=== PATIENT | female | born 1965 ===

== ENCOUNTER 2023-12-24 10:59 | Emergency (ER) | payer OTHER, SELFPAY ==
[2023-12-24 11:06] VITALS: BP 106/68
[2023-12-24 11:34] VITALS: BMI 20.6
--- NOTE | 2023-12-24 11:50 | ED.GENMED ---
History of Present Illness
General
Chief Complaint: Musculo-Skeletal Complaint
Time Seen by Provider: 12/24/23 11:37
History of Present Illness
History of Present Illness:
58-year-old female presents the emergency department for ration of right third toe injury, states that she stubbed her toe on her crutches when attempting to ambulate last night. Obvious bruising deformity noted
Review of Systems
Review of Systems
Allergies reviewed?: Yes
All Other Systems: ROS reviewed and negative except as documented in HPI and ROS
Phy Exam
Physical Exam
Physical Exam:
GEN: Well appearing, NAD, WDWN
HEENT: Oral mucosa moist, no scleral icterus
Cardiac: Regular rate
Lung: No respiratory distress, no tachypnea
MSK: Ecchymosis with deformity right third toe moderate swelling noted
Skin: Good color, no pallor or jaundice, no rashes
Neuro: AO x3, moves all extremities freely
Psych: Calm, cooperative
Course
Orders/Labs/Results
Orders:
Orders
12/24/23 11:10
Toes 2 Views, Right [CR Toe(s) Min 2 Vw Right] Urgent
Comment:
Reason For Exam: pain and swelling
Indicate Which Toe:: Third
Vital Signs
Initial and Last Documented VS:
Initial Vital Signs
Temp Pulse Resp BP Pulse Ox
98.2 F 82 18 106/68 99
12/24/23 11:06 12/24/23 11:06 12/24/23 11:06 12/24/23 11:06 12/24/23 11:06
Last Documented Vital Signs
Temp Pulse Resp BP Pulse Ox
98.2 F 82 18 106/68 99
12/24/23 11:06 12/24/23 11:06 12/24/23 11:06 12/24/23 11:06 12/24/23 11:06
MDM/Problems Addressed
MDM/Problems Addressed:
X-rays independently interpreted by me show a oblique fracture of the proximal phalanx of the right third toe, guillermo taping and supportive care discussed, outpatient podiatry follow-up recommended. [place] of time, plans to f/u with ict security specialist [place]
*Critical Care Note
Total Time (30-74mins, 75-104mins- exclusive of procedures): Not Applicable
ED Attending Note
-
Portions of this chart may have been created with voice recognition software.� Occasional wrong word or��sound alike� substitutions may have occurred due to the inherent limitations of voice recognition software.
Discharge Plan
Departure
Patient Disposition: Home (Routine Discharge)
Date of Disposition: 12/24/23
Time of Disposition: 11:51
Patient with high blood pressure during this ER visit?: No
Discharge Problem:
Closed fracture of phalanx of right third toe
Instructions: Toe Fracture ED
Referrals:
Nitish Moreno DPM [Specified Professional Personl] -
Marlon Bravo MD [Family Provider] -
Interventions
Interventions:
*Risk Screen - Suicide Last Done: 12/24/23 11:36
*General Assessment Last Done: 12/24/23 11:36
*Neglect/Abuse Screening Last Done: 12/24/23 11:36
ED- Fall Risk Assessment Last Done: 12/24/23 11:37
*ED COVID-19 Vaccine History Last Done: 12/24/23 11:36
*Nursing Disposition Last Done: 12/24/23 12:22
ED-Musculoskeletal Assessment Last Done: 12/24/23 11:40
Discharge Date and Time
Discharge Date/Time: 12/24/23 12:23
Print Language: TURKISH
== END 2023-12-24 12:23 | disposition home or self-care (01) ==
LOC: EMR 10:59
PROVIDERS: EMERGENCY PHYSICIAN Emergency Medicine; FAMILY PHYSICIAN Family Medicine
DX: S92.501A Displaced unspecified fracture of right lesser toe(s), initial encounter for closed fracture (principal); S90.121A Contusion of right lesser toe(s) without damage to nail, initial encounter; W22.8XXA Striking against or struck by other objects, initial encounter
CPT/HCPCS: 99283; 73660

== ENCOUNTER 2023-12-25 11:16 | Outpatient (RCR) | payer OTHER, SELFPAY | END 2023-12-25 23:59 | disposition home or self-care (01) | LOC: RPT 11:16 | PROVIDERS: ATTENDING PHYSICIAN Family Medicine | DX: S82.109D Unspecified fracture of upper end of unspecified tibia, subsequent encounter for closed fracture with routine healing (principal); Z73.6 Limitation of activities due to disability | CPT/HCPCS: 97110; 97161 ==

== ENCOUNTER 2024-03-25 06:22 | Outpatient (RCR) | payer OTHER, SELFPAY | END 2024-03-25 23:59 | disposition home or self-care (01) | LOC: RPT 06:22 | PROVIDERS: ATTENDING PHYSICIAN Family Medicine | DX: S82.109D Unspecified fracture of upper end of unspecified tibia, subsequent encounter for closed fracture with routine healing (principal); S82.102D Unspecified fracture of upper end of left tibia, subsequent encounter for closed fracture with routine healing (principal); Z73.6 Limitation of activities due to disability; M62.81 Muscle weakness (generalized) | CPT/HCPCS: 97110; 97112; 97164; 97530 ==

== ENCOUNTER 2024-04-08 06:45 | Outpatient (RCR) | payer OTHER, SELFPAY | END 2024-04-08 09:00 | disposition home or self-care (01) | LOC: RPT 06:45 | PROVIDERS: ATTENDING PHYSICIAN Family Medicine | DX: S82.109D Unspecified fracture of upper end of unspecified tibia, subsequent encounter for closed fracture with routine healing (principal); Z73.6 Limitation of activities due to disability; M62.81 Muscle weakness (generalized) | CPT/HCPCS: 97110; 97112; 97530 ==